=== PATIENT | female | born 1960 | race Caucasian/White ===

== ENCOUNTER 2016-09-03 09:24 | Emergency (ER) | payer BC ==
[~2016-09-03 09:24] MED LIST: ASAB PO; BYSTOLIC2.5 MG PO; CELEXA10 PO; LOTENSIN HCT1 TA2 PO; NEXIUM40 PO; SYNTHROID175 MCG PO; VICON FORTE1 CAP PO; VITAMIN C250 MG OR; VITAMIN D400 UNI1 PO; ZANTAC150 MG PO
[2016-11-23] MEDS ORDERED: LIPITOR40 PO (15:50)
[2016-11-23] MEDS ORDERED: COREG25 PO (15:51)
[2016-11-23] MEDS ORDERED: CELEXA20 PO (15:51)
[2016-11-23] MEDS ORDERED: PRILO PO (15:51)
[2016-11-23] MEDS ORDERED: HYZAAR 50/12.51 TAB PO (15:52)
[2016-11-23] MEDS ORDERED: [UNRECOGNIZED DRUG - OTHER] PO (15:52)
[2016-11-23] MEDS ORDERED: MOBIC7.5 PO (15:53)
[2016-11-27] MEDS ORDERED: C25 PO (09:51)
[2016-11-27] MEDS ORDERED: ZOFRAN4 PO (09:52)
[2016-11-27] MEDS ORDERED: PCET PO (09:52)
== END 2016-09-03 14:21 | disposition home or self-care (01) ==
LOC: ER 09:24
DX: S90.02XA Contusion of left ankle, initial encounter (principal); I10 Essential (primary) hypertension; Z85.850 Personal history of malignant neoplasm of thyroid; Z79.82 Long term (current) use of aspirin; Z79.899 Other long term (current) drug therapy; W19.XXXA Unspecified fall, initial encounter
CPT/HCPCS: 73560-RT; 73610-LT; 73630-LT; 99284